=== PATIENT | female | born 1990 | race African-American/Black ===

== ENCOUNTER 2016-10-23 18:22 | Emergency (ER) | payer MEDICAID ==
[~2016-10-23] VITALS: Ht 167.6 cm; Wt 90.0 kg
[2016-10-23 18:24] VITALS: BP 119/59; PULSE 88; RESP 20; TEMP 98.4; O2SAT 100
--- NOTE | 2016-10-23 19:30 | PD ---
Physical Exam Date Seen by Provider: Oct 23, 2016 Time Seen by Provider: 19:28 Data Data Last Documented VS Vital Signs Date Time Temp Pulse Resp B/P Pulse Ox O2 Delivery O2 Flow Rate FiO2 10/23/16 18:24 98.4 88 20 119/59 100 Room Air MDM Supervised Visit with ANGELA: No Narrative Course 26 YO F with complaint of vaginal irritation, swelling x 2 days. LMP~ 10/16. Vitals reviewed. Awaiting bed placement. Scripts No Active Prescriptions or Reported Meds Kathleen Pemberton Oct 23, 2016 19:30
--- NOTE | 2016-10-23 20:13 | PD ---
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 Seen by Provider: 20:13 Travel History International Travel<30 days: No Contact w/Intl Traveler<30days: No Traveled to known affect area: No PFSH Past Medical History Medical History: Denies Significant Hx Developmental Delay: No Diminished Hearing: No Genitourinary: Yes (UTI) Immunizations Current: Yes ?: Not LMP: 10/16/16 : 2 Para: 1 Miscarriage: 0 : 1 Dilation and Curettage (D&C): Yes (MARCH ) Past Surgical History Surgical History: No Previous Surgery Social History Alcohol Use: No Tobacco Use: No Substance Use: No Allergies-Medications (Allergen,Severity, Reaction): Coded Allergies: No Known Allergies (Verified , 01/27/14) Reported Meds & Prescriptions Reported Meds & Active Scripts Active No Active Prescriptions or Reported Medications Data Data Last Documented VS Vital Signs Date Time Temp Pulse Resp B/P Pulse Ox O2 Delivery O2 Flow Rate FiO2 10/23/16 18:24 98.4 88 20 119/59 100 Room Air MDM Scripts No Active Prescriptions or Reported Meds Karen Chan Oct 23, 2016 20:13
--- NOTE | 2016-10-23 20:32 | PD ---
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 Patient states her menstrual cycle was last week and she used a new brand of tampons. She also attempted a new soap recently. Shortly following the use of the soap, she noticed itching and irritation of her labia. Denies any abdominal pain. No vaginal discharge or bleeding. No urinary symptoms. She reports no pain. She has had no fever or chills. She has no other symptoms to report this time. History Past Medical Histgory Medical History: Denies Significant Hx LMP: 10/16/16 Past Surgical History Surgical History: No Previous Surgery Social History Alcohol Use: No Tobacco Use: No Allergies-Medications (Allergen,Severity, Reaction): Coded Allergies: No Known Allergies (Verified , 01/27/14) Reported Meds & Prescriptions Reported Meds & Active Scripts Active No Active Prescriptions or Reported Medications Review of Systems Except as stated in HPI: all other systems reviewed are Neg Physical Exam Narrative GENERAL: Well-nourished, well-developed well-nourished female patient, in no acute distress SKIN: Focused skin assessment warm/dry. HEAD: Normocephalic. EYES: No scleral icterus. No injection or drainage. NECK: Supple, trachea midline. No JVD or lymphadenopathy. CARDIOVASCULAR: Regular rate and rhythm without murmurs, gallops, or rubs. RESPIRATORY: Breath sounds equal bilaterally. No accessory muscle use. Abdomen: Abdomen soft, non-tender, nondistended. Positive bowel sounds. No hepato-splenomegaly, or palpable masses. No guarding. GENITOURINARY: Normal external genitalia without lesions or erythema. There is some irritation between the labia. There is no discharge noted. No lesions. No sores. No edema. MUSCULOSKELETAL: No cyanosis, or edema. BACK: Nontender without obvious deformity. No CVA tenderness. Data Data Last Documented VS Vital Signs Date Time Temp Pulse Resp B/P Pulse Ox O2 Delivery O2 Flow Rate FiO2 10/23/16 18:24 98.4 88 20 119/59 100 Room Air [facility] Medical Screen Exam Complete: Yes Emergency Medical Condition: No Differential Diagnosis Contact dermatitis versus chemical irritation versus labial irritation versus vaginal candidiasis Narrative Course 26-year-old female presents to the emergency department for evaluation of labial irritation after using a new soap. She states this may also be due to new tampons. Patient appears without distress. External genitalia is examined with nurse at bedside and does look slightly irritated but with no sores or lesions. There is no swelling. There is no vaginal discharge noted. I encouraged the patient to not use abrasive soaps and to return to sensitive products for her perineal care. I also advised her to return immediately with any acute worsening symptoms. At this time there are no urgent or emergent needs for medical intervention identified. A medical screening exam was performed: At the time of evaluation the presenting medical condition was determined not to be of an emergent nature. The patient was given the option of receiving additional care, but declined. Patient was given options for additional community resources from which to obtain care. The Patient Has Been advised to seek medical attention for their presenting complaint. The patient has been advised to return to the ER at any time if an emergent condition develops. Primary Impression: Labia irritation Additional Impression: Encounter for medical screening examination Scripts No Active Prescriptions or Reported Meds Condition: Karen Simmons Oct 23, 2016 20:32
== END 2016-10-23 20:40 | disposition left against medical advice (07) ==
LOC: NEPC 18:22
DX: N89.8 Other specified noninflammatory disorders of vagina (principal)
CPT/HCPCS: 99281

== ENCOUNTER 2016-11-28 17:49 | Emergency (ER) | payer MEDICAID ==
[~2016-11-28] VITALS: Ht 170.2 cm; Wt 93.0 kg
[2016-11-28 17:50] VITALS: BP 130/80; PULSE 108; RESP 20; TEMP 98.7; O2SAT 99
--- NOTE | 2016-11-28 21:16 | PD ---
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 States LMP was 11/14/16 but she had vaginal bleeding 2 days ago and it stopped yesterday. Had some intermittent lower abdominal cramping. Denies any fever, chest pain, sob, n/v, abnormal vaginal discharge, focal weakness or numbness. PFSH Past Medical History Medical History: Denies Significant Hx Developmental Delay: No Diminished Hearing: No Genitourinary: Yes (UTI) Immunizations Current: Yes ?: Unknown LMP: 11/26/16 : 2 Para: 1 Miscarriage: 0 : 1 Dilation and Curettage (D&C): Yes ("ABOUT A YEAR AND A HALF AGO") Social History Alcohol Use: No Tobacco Use: Yes Substance Use: No Allergies-Medications (Allergen,Severity, Reaction): Coded Allergies: No Known Allergies (Verified , 11/28/16) Reported Meds & Prescriptions Reported Meds & Active Scripts Active No Active Prescriptions or Reported Medications Review of Systems Except as stated in HPI: all other systems reviewed are Neg Physical Exam Narrative GENERAL: 26yo F not in distress. SKIN: Focused skin assessment warm/dry. HEAD: Atraumatic. Normocephalic. CARDIOVASCULAR: Regular rate and rhythm. No murmur appreciated. RESPIRATORY: No accessory muscle use. Clear to auscultation. Breath sounds equal bilaterally. GASTROINTESTINAL: Abdomen soft, non-tender, nondistended. No rebound tenderness or guarding. MUSCULOSKELETAL: No obvious deformities. No clubbing. No cyanosis. No edema. NEUROLOGICAL: Awake and alert. No obvious cranial nerve deficits. Motor grossly within normal limits. Normal speech. PSYCHIATRIC: Appropriate mood and affect; insight and judgment normal. Data Data Last Documented VS Vital Signs Date Time Temp Pulse Resp B/P Pulse Ox O2 Delivery O2 Flow Rate FiO2 11/28/16 17:50 98.7 108 20 130/80 99 Room Air Orders Ed Urine Pregnancytest Poc (11/28/16 22:29) Urinalysis - C+S If Indicated (11/28/16 22:30) Labs Laboratory Tests Test 11/28/16 22:25 Urine Color YELLOW Urine Turbidity CLEAR Urine pH 6.5 Urine Specific [place] 1.023 Urine Protein NEG mg/dL Urine Glucose (UA) NEG mg/dL Urine Ketones NEG mg/dL Urine Occult Blood NEG Urine Nitrite NEG Urine Bilirubin NEG Urine Urobilinogen 2.0 MG/DL Urine Leukocyte Esterase NEG Urine WBC LESS THAN 1 /hpf Urine Squamous Epithelial <1 /hpf Cells Urine Mucus FEW /lpf Microscopic Urinalysis Comment CULT NOT INDICATED MDM Medical Decision Making Medical Screen Exam Complete: Yes Emergency Medical Condition: Yes Differential Diagnosis Abnormal uterine bleeding vs. UTI vs. Narrative Course 26yo F with 2 days of vaginal bleeding that has stopped. States it was not time for her menstrual period yet so she was concerned. Pt has no abdominal pain and does not have any bleeding at this time. UA showed no blood, no leukocyte. Culture not indicated. Urine negative. Pt referred to [facility] for further work up of abnormal uterine bleeding. Return precautions given. Diagnosis Primary Impression: Abnormal uterine bleeding Referrals: Destini Hand MD Patient Instructions: General Instructions Departure Forms: Tests/Procedures Additional Instructions: Please follow up with [facility] as an outpatient. Return to the ED if symptoms worsen. Med/Other Pt SpecificInfo: No Change to Meds Scripts No Active Prescriptions or Reported Meds Disposition: 01 DISCHARGE HOME Condition: Stable Roseanna Koch Nov 28, 2016 21:16
[2016-11-28 23:00] LABS: BLOOD, URINE NEG (NEG); GLUCOSE,URINE NEG (NEG); KETONE, URINE NEG (NEG); MUCUS URINE FEW /lpf (OCC); NITRITE,URINE NEG (NEG); PH, URINE 6.5 (5.0-8.5); SQUAMOUS EPITHELIAL CELL URINE <1 /hpf (0-5); URINE COLOR YELLOW (YELLW/STRAW)
[2016-11-28 23:01] LABS: COMMENT (UR) CULT NOT INDICATED; CULTURE IF INDICATED CULT NOT INDICATED
== END 2016-11-29 00:13 | disposition home or self-care (01) ==
LOC: NEPD 17:49
DX: N93.9 Abnormal uterine and vaginal bleeding, unspecified (principal)
CPT/HCPCS: 81001; 84703; 99283

== ENCOUNTER 2017-05-30 22:30 | Emergency (ER) | payer SELFPAY ==
[~2017-05-30] VITALS: Ht 167.6 cm; Wt 98.0 kg
[2017-05-30 22:33] VITALS: BP 128/73; PULSE 80; RESP 16; TEMP 98.6; O2SAT 99
[2017-05-31 02:21] LABS: BASOPHIL # 0.1 TH/MM3 (0-0.2); BASOPHIL % 1.2 % (0.0-2.0); EOSINOPHIL # 0.6 TH/MM3 (0-0.4); EOSINOPHIL % 6.8 % (0.0-4.0); HEMATOCRIT 37.8 % (35.0-46.0); HEMOGLOBIN 12.8 GM/DL (11.6-15.3); LYMPH % 42.6 % (9.0-44.0); LYMPHOCYTE # 3.9 TH/MM3 (1.0-4.8); MEAN CELL VOLUME 92.2 FL (80.0-100.0); MEAN CORPUSCULAR HEMOGLOBIN 31.2 PG (27.0-34.0); MEAN CORPUSCULAR HGB CONC 33.9 % (32.0-36.0); MEAN PLATELET VOLUME 7.8 FL (7.0-11.0); MONO % 5.9 % (0.0-8.0); MONOCYTE # 0.5 TH/MM3 (0-0.9); NEUT % 43.5 % (16.0-70.0); PLATELET COUNT 241 TH/MM3 (150-450); RED CELL DISTRIBUTION WIDTH 13.6 % (11.6-17.2); WHITE BLOOD COUNT 9.2 TH/MM3 (4.0-11.0)
[2017-05-31 02:27] LABS: BILIRUBIN, URINE NEG (NEG); BLOOD, URINE NEG (NEG); GLUCOSE,URINE NEG (NEG); KETONE, URINE NEG (NEG); MUCUS URINE FEW /lpf (OCC); NITRITE,URINE NEG (NEG); PH, URINE 6.5 (5.0-8.5); SQUAMOUS EPITHELIAL CELL URINE 2 /hpf (0-5); URINE COLOR YELLOW (YELLW/STRAW); URINE LEUKOCYTE ESTERASE TRACE (NEG)
[2017-05-31 02:36] LABS: ALBUMIN 3.8 GM/DL (3.4-5.0); ALT (GPT) 22 U/L (10-53); AST (GOT) 16 U/L (15-37); BICARBONATE 29.2 MEQ/L (21.0-32.0); BLOOD UREA NITROGEN 8 MG/DL (7-18); CALCIUM 8.8 MG/DL (8.5-10.1); CHLORIDE 107 MEQ/L (98-107); CREATININE 0.68 MG/DL (0.50-1.00); GLOMERULAR FILTRATION RATE 129 ML/MIN (>89); GLUCOSE,RANDOM 90 MG/DL (74-106); LIPASE 183 U/L (73-393); SODIUM (NA) 142 MEQ/L (136-145)
[2017-05-31 02:38] LABS: ALKALINE PHOSPHATASE 98 U/L (45-117); TOTAL BILIRUBIN ADULT 0.2 MG/DL (0.2-1.0)
[2017-05-31] MEDS ORDERED: KETOROLAC TROMETHAMINE 30 MG/ML (IVP) VIAL IV PUSH ONE (04:15)
[2017-05-31] MEDS ORDERED: METR-1 PO (04:52)
--- NOTE | 2017-05-31 04:53 | PD ---
HPI Chief Complaint: Complaint Time Seen by Provider: 03:28 Travel History International Travel<30 days: No Contact w/Intl Traveler<30days: No Traveled to known affect area: No History of Present Illness HPI Patient is a 26 year old female who comes in complaining of pain in her suprapubic area. She says it feels like "a pulling" whenever she urinates. She denies any burning with urination. She says she has noticed a discharge and foul odor. She says she has had the symptoms for a few days now. She took some OTC pain medicine without relief of her symptoms. She had one episode of vomiting two days ago. She denies fever or chills. She is sexually active with one partner and he is not having any symptoms. [facility] Past Medical History Medical History: Denies Significant Hx Developmental Delay: No Diminished Hearing: No Genitourinary: Yes (UTI) Immunizations Current: Yes ?: Not LMP: 05/23/17 : 2 Para: 1 Miscarriage: 0 : 1 Dilation and Curettage (D&C): Yes ("ABOUT A YEAR AND A HALF AGO") Past Surgical History Surgical History: No Previous Surgery Social History Alcohol Use: No Tobacco Use: No Substance Use: No Allergies-Medications (Allergen,Severity, Reaction): Coded Allergies: No Known Allergies (Verified , 11/28/16) Reported Meds & Prescriptions Reported Meds & Active Scripts Active No Active Prescriptions or Reported Medications Review of Systems Except as stated in HPI: all other systems reviewed are Neg General / Constitutional: No: Fever, Chills HENT: No: Headaches, Lightheadedness Cardiovascular: No: Chest Pain or Discomfort Respiratory: No: Shortness of Breath Gastrointestinal: Positive: Abdominal Pain Genitourinary: Positive: Discharge, No: Dysuria, Flank Pain Musculoskeletal: No: Myalgias, Weakness Skin: No Rash, No Itching Neurologic: No: Weakness, Dizziness Physical Exam Narrative GENERAL: Awake and alert, in no acute distress. SKIN: Focused skin assessment warm/dry. HEAD: Atraumatic. Normocephalic. EYES: Pupils equal and round. No scleral icterus. ENT: Mucous membranes pink and moist. NECK: Trachea midline. No JVD. CARDIOVASCULAR: Regular rate and rhythm. No murmur appreciated. RESPIRATORY: No accessory muscle use. Clear to auscultation. Breath sounds equal bilaterally. GASTROINTESTINAL: Abdomen soft, nondistended. Tender to palpation of the suprapubic area. No rebound or guarding. : Exam performed in the presence of nurse Juanita. Thick luna discharge. No CMT. MUSCULOSKELETAL: No obvious deformities. No clubbing. No cyanosis. No edema. NEUROLOGICAL: Awake and alert. No obvious cranial nerve deficits. Motor grossly within normal limits. Normal speech. PSYCHIATRIC: Appropriate mood and affect; insight and judgment normal. Data Data Last Documented VS Vital Signs Date Time Temp Pulse Resp B/P (MAP) Pulse Ox O2 Delivery O2 Flow Rate FiO2 05/30/17 22:33 98.6 80 16 128/73 (91) 99 Orders Orders Complete Blood Count With Diff (05/31/17 01:48) Comprehensive Metabolic Panel (05/31/17 01:48) Urinalysis - C+S If Indicated (05/31/17 01:48) Ed Urine Pregnancytest Poc (05/31/17 01:48) Iv Access Insert/Monitor (05/31/17 01:48) Oxygen Administration (05/31/17 01:48) Oximetry (05/31/17 01:48) Lipase (05/31/17 01:48) Gc And Chlamydia Pcr (05/31/17 03:34) Wet Prep Profile (05/31/17 03:34) Ketorolac Inj (Toradol Inj) (05/31/17 04:15) Labs Laboratory Tests Test 05/31/17 01:58 05/31/17 02:00 05/31/17 04:13 White Blood Count 9.2 TH/MM3 Red Blood Count 4.10 MIL/MM3 Hemoglobin 12.8 GM/DL Hematocrit 37.8 % Mean Corpuscular Volume 92.2 FL Mean Corpuscular Hemoglobin 31.2 PG Mean Corpuscular Hemoglobin Concent 33.9 % Red Cell Distribution Width 13.6 % Platelet Count 241 TH/MM3 Mean Platelet Volume 7.8 FL Neutrophils (%) (Auto) 43.5 % Lymphocytes (%) (Auto) 42.6 % Monocytes (%) (Auto) 5.9 % Eosinophils (%) (Auto) 6.8 % Basophils (%) (Auto) 1.2 % Neutrophils # (Auto) 4.0 TH/MM3 Lymphocytes # (Auto) 3.9 TH/MM3 Monocytes # (Auto) 0.5 TH/MM3 Eosinophils # (Auto) 0.6 TH/MM3 Basophils # (Auto) 0.1 TH/MM3 CBC Comment DIFF FINAL Differential Comment Blood Urea Nitrogen 8 MG/DL Creatinine 0.68 MG/DL Random Glucose 90 MG/DL Total Protein 8.0 GM/DL Albumin 3.8 GM/DL Calcium Level 8.8 MG/DL Alkaline Phosphatase 98 U/L Aspartate Amino Transf (AST/SGOT) 16 U/L Alanine Aminotransferase (ALT/SGPT) 22 U/L Total Bilirubin 0.2 MG/DL Sodium Level 142 MEQ/L Potassium Level 4.1 MEQ/L Chloride Level 107 MEQ/L Carbon Dioxide Level 29.2 MEQ/L Anion Gap 6 MEQ/L Estimat Glomerular Filtration Rate 129 ML/MIN Lipase 183 U/L Urine Color YELLOW Urine Turbidity CLEAR Urine pH 6.5 Urine Specific [place] 1.015 Urine Protein NEG mg/dL Urine Glucose (UA) NEG mg/dL Urine Ketones NEG mg/dL Urine Occult Blood NEG Urine Nitrite NEG Urine Bilirubin NEG Urine Urobilinogen LESS THAN 2.0 MG/DL Urine Leukocyte Esterase TRACE Urine RBC LESS THAN 1 /hpf Urine WBC 1 /hpf Urine Squamous Epithelial Cells 2 /hpf Urine Mucus FEW /lpf Microscopic Urinalysis Comment CULT NOT INDICATED Clue Cells (Wet Prep) PRESENT Vaginal Trichomonas (Wet Prep) NONE SEEN Vaginal Yeast (Wet Prep) NONE SEEN MDM Medical Decision Making Medical Screen Exam Complete: Yes Emergency Medical Condition: Yes Medical Record Reviewed: Yes Differential Diagnosis BV vs gc/chlamydia vs UTI vs yeast infection Narrative Course Patient is a 26-year-old female who comes in complaining of a pain to her suprapubic area. Exam shows a thick white discharge and tenderness to the suprapubic area. IV established, labs sent. Labs show no acute abnormalities. Urinalysis is negative for UTI. Wet prep sent is positive for clue cells. Swab sent for GC and Chlamydia. Patient given a dose of Toradol. She'll be discharged with a prescription for Flagyl. Advised to avoid alcohol taking this antibiotic. 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 Advised to return to the ED as needed for any worsening symptoms. Diagnosis Primary Impression: Bacterial vaginosis Patient Instructions: Bacterial Vaginosis (ED), General Instructions Additional Instructions: Take all of your antibiotic. Avoid alcohol while taking the antibiotic as it will make you violently ill. Follow-up with gynecology. Return to the ED as needed for any worsening symptoms. Scripts Metronidazole (Flagyl) 500 Mg Tab 500 MG PO BID for Infection for 7 Days, #14 TAB 0 Refills Prov: Della Bermeo MD 05/31/17 Disposition: 01 DISCHARGE HOME Condition: Stable Della Bermeo MD May 31, 2017 04:53
[2017-05-31] MEDS ORDERED: KETOROLAC TROMETHAMINE 60 MG/2 ML (IM) VIAL IM ONE (05:00)
== END 2017-05-31 06:07 | disposition home or self-care (01) ==
LOC: NEPC 22:30
DX: N76.0 Acute vaginitis (principal); B96.89 Other specified bacterial agents as the cause of diseases classified elsewhere
CPT/HCPCS: 80053; 81001; 83690; 84703; 85025; 87210; 87491; 87591; 96372; 99284; J1885